=== PATIENT | male | born 1955 | race Hispanic/Latino ===

== ENCOUNTER → 2023-08-28 | Outpatient (CLI) | payer OTHER | END | disposition home or self-care (01) | LOC: OIH 13:55 | PROVIDERS: ATTEND Internal Medicine | DX: Z13.6 Encounter for screening for cardiovascular disorders (principal) | CPT/HCPCS: 75571 ==

== ENCOUNTER 2025-05-29 15:13 | Emergency (ER) | payer OTHER ==
[~2025-05-29] VITALS: Ht 165.1 cm; Wt 67.1 kg
--- NOTE | 2025-05-29 15:22 | ERN ---
General Chief Complaint: Abdominal Pain Stated Complaint: LOWER ABD PAIN Time Seen by MD: 15:17 Source: patient History of Present Illness Initial Comments PATIENT IS A 70-YEAR-OLD MALE COMING IN COMPLAINING OF ABDOMINAL PAIN. PER PATIENT THIS PAIN HAS BEEN ONGOING SINCE TODAY. HE STATES THAT THE PAIN IS 10/10 IN HIS LOWER ABDOMINAL REGION. THE PAIN IS SHARP IN NATURE. Allergies: Coded Allergies: No Known Allergies (Unverified Allergy, Unknown, 05/29/25) Past Medical History Past Medical History: High Cholesterol Past Surgical History: None ROS Dictation CONSTITUTIONAL: NO CHILLS, NO FEVER, NO WEAKNESS, NO DIAPHORESIS, NO MALAISE. HEAD/FACE: NO SIGNS OF TRAUMA. EENT: NO EYE PAIN, NO BLURRED VISION, NO TEARING, NO DOUBLE VISION, NO EAR PAIN, NO EAR DISCHARGE, NO NOSE PAIN, NO NASAL CONGESTION, NO THROAT PAIN, NO THROAT SWELLING, NO MOUTH PAIN. RESPIRATORY: NO COUGH, NO ORTHOPNEA, NO SOB, NO STRIDOR, NO WHEEZING. CARDIOVASCULAR: NO CHEST PAIN, NO EDEMA, NO PALPITATIONS, NO SYNCOPE. GASTROINTESTINAL/ABDOMINAL: ABDOMINAL PAIN, NO CONSTIPATION, NO DIARRHEA, NO NAUSEA, NO VOMITING. GENITOURINARY: NO ABNORMAL DISCHARGE, NO DYSURIA, NO FREQUENT URINATION, NO HEMATURIA. NO COMPLAINTS OF PAIN IN THE GENITALS. MUSCULOSKELETAL: NO BACK PAIN, NO GOUT, NO JOINT PAIN, NO JOINT SWELLING, NO MUSCLE PAIN, NO MUSCLE STIFFNESS, NO NECK PAIN. INTEGUMENTARY: NO CHANGE IN COLOR, NO CHANGE IN HAIR/NAILS, NO DRYNESS, NO LESION, NO LUMPS, NO RASH. NEUROLOGICAL/PSYCH: NO ANXIETY, NOT DEPRESSED, NO EMOTIONAL PROBLEM, NO HEADACHE, NO NUMBNESS, NO PRE-EXISTING DEFICIT, NO HISTORY OF SEIZURES, NO TREMORS, NO WEAKNESS. HEMATOLOGIC/LYMPHATIC: NOT ANEMIC, NO HISTORY OF BLOOD CLOTS, NO APPARENT BLEEDING, NO BRUISING, GLANDS NOT SWOLLEN. ALL SYSTEMS NEGATIVE, EXCEPT NOTED. Physical Exam Physical Exam Dictation VITAL SIGNS: REVIEWED. GENERAL APPEARANCE: ALERT, ORIENTED X3, NO ACUTE DISTRESS, OBESE. HEAD AND FACE: NON-TRAUMATIC. EYES: PERRL, PINK CONJUNCTIVAS, EYELID NO TRAUMA, ANTERIOR CHAMBER CLEAR. EARS: PINNAS INTACT AND NO SIGNS OF TRAUMA OR ERYTHEMA. EAR CANALS CLEAR AND NO DISCHARGE. TMS NO ERYTHEMA. NOSE: NO DISCHARGE, NO BLEEDING. OROPHARYNX: MOUTH NORMAL, TEETH NO CARIES, TONGUE PINK. PHARYNX CLEAR, NO ERYTHEMA. TONSILS NO EXUDATES, NO ABSCESSES NOTED. MUCOUS MEMBRANE MOIST. NECK: SUPPLE, NON-TENDER, NO THYROMEGALY, NO MASSES, NO JVD, NO BRUITS. BREAST: DEFERRED. CHEST: NO TENDERNESS, NO CREPITUS, NO PARADOXICAL MOVEMENT, NO RETRACTIONS. LUNGS: CLEAR, WELL-VENTILATED, SYMMETRIC, NO RALES, NO WHEEZING, NO RHONCHI, NO STRIDOR, GOOD BREATH SOUNDS BILATERALLY. HEART: REGULAR RATE, REGULAR RHYTHM, NO MURMUR, NO GALLOPS. VASCULAR: NO PERIPHERAL EDEMA. ABDOMEN: SOFT, POSITIVE BOWEL SOUNDS, NONDISTENDED, NO GUARDING, NONTENDER, NO REBOUND, NO MASSES NO HEPATOMEGALY, NO SPLENOMEGALY, NO ECHEVERRIA'S SIGN, NO HERNIAS. RECTAL: DEFERRED. GENITAL: DEFERRED. NEUROLOGICAL: NORMAL SPEECH, GROSS MOTOR FUNCTION INTACT, GROSS SENSORY FUNCTION INTACT. MUSCULOSKELETAL: NECK NONTENDER, FULL RANGE OF MOTION, BACK NONTENDER, FULL RANGE OF MOTION. EXTREMITIES: NONTENDER, FULL RANGE OF MOTION. SKIN: COLOR PINK, DRY, NO TURGOR, NO RASH, NO LACERATIONS, NO ABRASIONS, NO CONTUSIONS. LYMPHATICS: DEFERRED. Results Laboratory and Microbiology Lab and Micro Result Laboratory Tests Test 05/29/25 15:32 White Blood Count 13.7 K/uL (4.8-10.8) H Red Blood Count 4.84 MIL/uL (4.50-6.20) Hemoglobin 15.7 g/dL (14.0-18.0) Hematocrit 45.2 % (42-54) Mean Corpuscular Volume 93.4 fL (79-99) Mean Corpuscular Hemoglobin 32.4 pg (27.0-33.0) Mean Corpuscular Hemoglobin Concent 34.7 g/dL (32.0-36.0) Red Cell Distribution Width 12.7 % (11.0-15.5) Platelet Count 331 K/uL (130-400) Mean Platelet Volume 9.9 fL (7.5-10.5) Immature Granulocyte % (Auto) 0.4 % (0-1) Neutrophils (%) (Auto) 68.4 % (40.0-77.0) Lymphocytes (%) (Auto) 24.6 % (21.0-51.0) Monocytes (%) (Auto) 4.8 % (3.0-13.0) Eosinophils (%) (Auto) 1.5 % (0.0-8.0) Basophils (%) (Auto) 0.3 % (0.0-5.0) Neutrophils # (Auto) 9.4 K/uL (1.8-7.7) H Lymphocytes # (Auto) 3.4 K/uL (1.0-4.8) Monocytes # (Auto) 0.7 K/uL (0.1-1.0) Eosinophils # (Auto) 0.21 K/uL (0.00-0.70) Basophils # (Auto) 0.04 K/uL (0.00-0.20) Absolute Immature Granulocyte (auto 0.05 K/uL (0-1) Nucleated Red Blood Cells 0.0 % (0.0-0.19) Sodium Level 141 mmol/L (136-145) Potassium Level 4.2 mmol/L (3.5-5.1) Chloride Level 103 mmol/L (101-111) Carbon Dioxide Level 28 mmol/L (21-32) Blood Urea Nitrogen 13 mg/dL (7-18) Creatinine 0.9 mg/dL (0.5-1.3) Glomerular Filtration Rate Calc 92 mL/min (>90) Random Glucose 153 mg/dL (70-105) H Total Calcium 8.9 mg/dL (8.5-10.1) Total Creatine Kinase 37 U/L (21-232) Troponin I High Sensitivity 4 ng/L (4-75) Lipase 15 U/L (16-77) L Labs Reviewed?: Yes EKG/XRAY/US/CT/MRI CT Scan Comment [place] [id number] [address] IMAGING REPORT Signed PATIENT: TONY FELIZ MR#: [id number] : 1955 SEX: M AGE: 70 LOCATION: ED ORDER 18 STATUS: REG ER REPORT#: [id number] SERVICE 16 REASON: ABD PAIN ORDERING PHYSICIAN: ALFONSO ACOSTA MD PROCEDURE: ABD PEL WO - CT ABDOMEN/PELVIS W/O CONTRAST EXAM: CT Abdomen and Pelvis Without Intravenous Contrast CLINICAL HISTORY: Abdominal pain TECHNIQUE: Axial computed tomography images of the abdomen and pelvis without intravenous contrast. Dose reduction technique was used including one or more of the following: automated exposure control, adjustment of mA and kV according to patient size, and/or iterative reconstruction. CONTRAST: NONE COMPARISON: None provided. FINDINGS: LUNG BASES: No basilar airspace consolidation or pleural effusion. LIVER: Unremarkable. GALLBLADDER AND BILE DUCTS: Unremarkable. No calcified stone. No ductal dilation. PANCREAS: Unremarkable. SPLEEN: Unremarkable. KIDNEYS, URETERS, AND BLADDER: Right-sided hydronephrosis and hydroureter are present, without evidence of obstructing ureteral calculus, but it is questioned that a calculus may have been recently passed. No ureteral or bladder calculi are seen. STOMACH AND BOWEL: No obstruction. No wall thickening. No CT evidence of colitis or acute diverticulitis. APPENDIX: No CT evidence for appendicitis. PERITONEUM: No free fluid. No free air. LYMPH NODES: No lymphadenopathy. REPRODUCTIVE: Unremarkable as visualized. VASCULATURE: No aortic aneurysm. ABDOMINAL WALL AND SOFT TISSUES: Unremarkable. BONES: No fracture or suspicious osseous abnormality. IMPRESSION: 1. Right-sided hydronephrosis and hydroureter without evidence of obstructing ureteral calculus, possibly due to a recently passed calculus. 2. No CT evidence of appendicitis or diverticulitis. /[place] DICTATED BY: BEENA MARCUM MD DATE: 05/29/251853 ELECTRONICALLY SIGNED BY: BEENA MARCUM MD DATE: 05/29/251853 [facility] MDM: DIFFERENTIAL DIAGNOSIS: Nephrolithiasis, appendicitis, obstruction, RATIONALE: TESTS CONSIDERED AND ORDERED SECONDARY TO SHARED DECISION MAKING INCLUDE: PREVIOUS OUTSIDE RECORDS REVIEWED: OLD ER VISITS. RISK OF COMPLICATION AND/OR MORBIDITY OR MORTALITY OF PATIENT MANAGEMENT: NONE MEDICATIONS-PER MEDICATION RECONCILIATION NEED FOR HOSPITALIZATION: PATIENT DOES NOT MEET CRITERIA FOR HOSPITALIZATION. NEED FOR EMERGENCY MAJOR/MINOR SURGERY: NO Patient is a 70-year-old gentleman coming in with lower abdominal discomfort. CT of the abdomen will need to be performed to rule out any acute pathology. CT disclosed possible recently passed kidney stone. Patient states that he is pain-free and states he go home and follow up with the PCP. ED Course Orders Procedure Category Date Status Time Cbc With Differential LAB 05/29/25 Complete 15:17 Troponin I High LAB 05/29/25 Complete Sensitivity 15:17 12 Lead Ekg Tracing- EKG 05/29/25 Complete Technical 15:17 0.9%Nacl 1000ml (Ns PHA 05/29/25 Complete 1000ml) 15:30 Ondansetron 4mg Inj PHA 05/29/25 Complete (Zofran 4mg Inj) 15:30 Pantoprazole 40mg Inj PHA 05/29/25 Complete (Protonix 40mg Inj 15:30 Creatine Kinase, Total LAB 05/29/25 Complete 15:17 Ct Abdomen/Pelvis W/O CT 05/29/25 Resulted Contrast 15:17 Lipase LAB 05/29/25 Complete 15:17 Basic Metabolic Panel LAB 05/29/25 Complete 15:17 Morphine 2mg Syg PHA 05/29/25 Complete (Morphine 2mg Syg) 16:30 Urinalysis LAB 05/29/25 Logged W/Microscopic 17:59 Current Medications Medications (Trade) Dose Ordered Sig/Alycia Route PRN Reason Start Time Stop Time Status Last Admin Dose Admin Morphine Sulfate (morPHINE 2MG SYG) 2 mg ONCE ONCE IVP 05/29/25 16:30 05/29/25 16:31 DC 05/29/25 16:41 Ondansetron HCl (zoFRAN 4MG INJ) 4 mg ONCE ONCE IVP 05/29/25 15:30 05/29/25 15:31 DC 05/29/25 15:58 Pantoprazole Sodium (PROTonix 40MG INJ) 40 mg ONCE ONCE IVP 05/29/25 15:30 05/29/25 15:31 DC 05/29/25 15:58 Sodium Chloride 1,000 ml @ 0 mls/hr ONCE ONCE IV 05/29/25 15:30 05/29/25 15:31 DC 05/29/25 15:57 Vital Signs Date Time Temp Pulse Resp B/P (MAP) Pulse Ox O2 Delivery O2 Flow Rate FiO2 05/29/25 15:20 81 20 176/99 100 Room Air* 0 21 05/29/25 15:14 98.2 48 16 153/78 98 Room Air 0 DX & DISP Disposition: Discharge Departure Impression: Primary Impression: Kidney stone Condition: Stable Scripts Ketorolac Tromethamine (Ketorolac Tromethamine) 10 Mg Tablet 1 TAB PO Q6HPRN PRN for pain for 5 Days, #20 TAB 0 Refills Prov: ALFONSO ACOSTA MD 05/29/25 Levofloxacin (Levaquin 750Mg Tabs) 750 Mg Tablet 500 MG PO DAILY for 7 Days, #7 TAB Prov: ALFONSO ACOSTA MD 05/29/25 Additional Instructions: FOLLOW-UP WITH PRIMARY CARE PROVIDER IN 1 TO 2 DAYS. TAKE MEDICATIONS DIRECTED HERE IN THE EMERGENCY ROOM. OKAY TO CONTINUE HOME MEDICATIONS UNLESS OTHERWISE DISCUSSED DURING YOUR VISIT IN THE EMERGENCY ROOM TODAY. RETURN TO YOUR NEAREST EMERGENCY ROOM IF SYMPTOMS WORSEN OR IF THERE IS NO IMPROVEMENT. CALL 911 IF YOU NEED IMMEDIATE ASSISTANCE. TAKE TYLENOL [id number] NEEDED AND IF NO CONTRAINDICATIONS ARE PRESENT. INCREASE ORAL HYDRATION. A WOUND CULTURE OR URINE CULTURE WAS ORDERED HERE IN THE EMERGENCY ROOM DEPARTMENT PLEASE FOLLOW-UP WITH PRIMARY CARE PROVIDER AND ADVISE THEM TO GET REPORTS FROM OUR FACILITY. IF YOU HAD ANY KELLI WRAP/SPLINTS THAT WERE APPLIED HERE, PLEASE DO NOT REMOVE THEM UNTIL YOU SEE YOUR PRIMARY CARE OR SPECIALTY. Referrals: Referrals: SHELLY PHILIP MD (PCP) ZURDO QUIGLEY MD Time of Disposition: 18:02 ALFONSO ACOSTA MD May 29, 2025 15:22
[2025-05-29 15:38] LABS: IMMATURE GRANULOCYTE ABSOLUTE 0.05 K/uL (0-1); NUCLEATED RED BLOOD CELLS 0.0 % (0.0-0.19); PLATELET COUNT (AUTO) 331 K/uL (130-400); RED BLOOD CELL COUNT(AUTO) 4.84 MIL/uL (4.50-6.20); RED CELL DISTRIBUTION WIDTH 12.7 % (11.0-15.5); WHITE BLOOD COUNT (AUTO) 13.7 K/uL (4.8-10.8)
[2025-05-29 15:47] LABS: CREATININE 0.9 mg/dL (0.5-1.3); GLOMERULAR FILTR. RATE CALC 92.0 mL/min (>90); GLUCOSE,RANDOM 153.0 mg/dL (70-105); SODIUM SERUM 141.0 mmol/L (136-145); UREA NITROGEN, BLOOD 13.0 mg/dL (7-18)
[2025-05-29 15:56] LABS: CREATINE KINASE, TOTAL 37.0 U/L (21-232)
[2025-05-29] MEDS: 0.9%NACL 1000ML 1,000 ML IV ONE (15:57)
--- NOTE | 2025-05-29 17:06 | EKG ---
[facility] Test Date: 2025-05-29 Test Time: 15:19:36 Pat Name: TONY FELIZ Department: ED Room: Gender: Physician Practice Coordinator: [facility] : 1955 Requested By: ALFONSO ACOSTA Order Number: [id number] Reading MD: Oliverio Obando Measurements Intervals [place] Rate: 77 P: 51 MO: 134 QRS: -39 QRSD: 93 T: 41 QT: 406 QTc: 460 Interpretive Statements Sinus rhythm Ventricular bigeminy Left axis deviation No previous ECG available for comparison Electronically Signed On 05-30-2025 19:41:21 CDT by Oliverio Obando Please click the below link to view image of tracing.
--- NOTE | 2025-05-29 17:56 | HMCIMG ---
EXAM: CT Abdomen and Pelvis Without Intravenous Contrast CLINICAL HISTORY: Abdominal pain TECHNIQUE: Axial computed tomography images of the abdomen and pelvis without intravenous contrast. Dose reduction technique was used including one or more of the following: automated exposure control, adjustment of mA and kV according to patient size, and/or iterative reconstruction. CONTRAST: NONE COMPARISON: None provided. FINDINGS: LUNG BASES: No basilar airspace consolidation or pleural effusion. LIVER: Unremarkable. GALLBLADDER AND BILE DUCTS: Unremarkable. No calcified stone. No ductal dilation. PANCREAS: Unremarkable. SPLEEN: Unremarkable. KIDNEYS, URETERS, AND BLADDER: Right-sided hydronephrosis and hydroureter are present, without evidence of obstructing ureteral calculus, but it is questioned that a calculus may have been recently passed. No ureteral or bladder calculi are seen. STOMACH AND BOWEL: No obstruction. No wall thickening. No CT evidence of colitis or acute diverticulitis. APPENDIX: No CT evidence for appendicitis. PERITONEUM: No free fluid. No free air. LYMPH NODES: No lymphadenopathy. REPRODUCTIVE: Unremarkable as visualized. VASCULATURE: No aortic aneurysm. ABDOMINAL WALL AND SOFT TISSUES: Unremarkable. BONES: No fracture or suspicious osseous abnormality. IMPRESSION: 1. Right-sided hydronephrosis and hydroureter without evidence of obstructing ureteral calculus, possibly due to a recently passed calculus. 2. No CT evidence of appendicitis or diverticulitis. /[place]
[2025-05-29] MEDS ORDERED: KETO10TA2 PO (18:03)
[2025-05-29] MEDS ORDERED: LEVO750T68 PO (18:03)
[2025-05-29 18:07] VITALS: BP 138/82; PULSE 81; RESP 16; TEMP 97.6; O2SAT 97
== END 2025-05-29 18:15 | disposition home or self-care (01) ==
LOC: EDH 15:13
DX: N13.2 Hydronephrosis with renal and ureteral calculous obstruction (principal); E78.00 Pure hypercholesterolemia, unspecified
CPT/HCPCS: 99285; 74176; 96374; 96361; 96375; 82550; 84484; 80048; 83690; 85025; 36415; 93005; J2270; J7030; J2405; J2470

== ENCOUNTER → 2025-06-01 | Outpatient (CLI) | payer OTHER ==
[~2025-06-01] MED LIST: KETO10TA2 PO; LEVO750T68 PO
--- NOTE | 2025-06-01 13:40 | HMCIMG ---
CLINICAL INDICATION: Unspecified abdominal pain/right flank pain FINDINGS: There is no previous study available for review. The shape, size and echogenicity of the kidneys in the cortex, medulla and sinus is normal bilaterally. There is no stones, masses or hydronephrosis in either side. No perinephric fluid collections in either side demonstrated. The right kidney measured 10.4 x 3.7 x 5.2 cm and the left one measured 10.8 x 4.5 x 4.6 cm. cm in dimensions. Pelvis urinary bladder has a prevoid volume is 107 cc and postvoid residual is 60 cc. The urinary bladder wall thickness is normal there is no mass or debris or calculi seen. The prostate is normal size measuring 22 cc. IMPRESSION: Normal ultrasound study of kidneys. .
== END | disposition home or self-care (01) ==
LOC: RAH 11:18
PROVIDERS: ATTEND Internal Medicine
DX: R10.31 Right lower quadrant pain (principal); R10.9 Unspecified abdominal pain
CPT/HCPCS: 76770